=== PATIENT | female | born 1970 | race Caucasian/White ===

== ENCOUNTER → 2020-11-23 | Outpatient (CLI) | payer MEDICAID, OTHER ==
[2020-11-23 16:06] LABS: BASOPHIL % 0.3 % (0.0-0.2); EOSINOPHIL # 0.1 10^3/uL (0.0-0.2); EOSINOPHIL % 2.2 % (0.0-5.0); LYMPHOCYTES # 1.64 10^3/uL1 (1.0-4.8); LYMPHOCYTES % 28.4 % (24.0-44.0); MEAN CORP HGB 27.6 pg (26-34); MONOCYTES # 0.2 10^3/uL (0.3-0.8); MONOCYTES % 4.2 % (5.0-12.0); NEUTROPHIL # 3.8 10^3/uL (1.8-7.7); NEUTROPHILS % 64.9 % (41.0-85.0); PLATELET COUNT 184 10^3/uL (150-400); RED CELL DISTRIBUTION WIDTH 13.2 % (11.5-14.5)
[2020-11-23 16:33] LABS: CALCIUM 8.7 mg/dL (8.4-10.5); CARBON DIOXIDE 28.5 mmol/L (20.0-32)
== END | disposition home or self-care (01) ==
LOC: NPLAB 15:33
PROVIDERS: ATTEND Family Medicine
DX: E56.9 Vitamin deficiency, unspecified (principal); D64.9 Anemia, unspecified; E03.9 Hypothyroidism, unspecified
CPT/HCPCS: 80053; 84443; 85025